=== PATIENT | male | born 1930 | race Caucasian/White ===

== ENCOUNTER 2016-08-04 04:45 | Emergency (ER) | payer MEDICARE, BC ==
[~2016-08-04] VITALS: Ht 170.2 cm; Wt 57.2 kg
[2016-08-04 05:09] VITALS: BP 163/85
[2016-08-04] MEDS ORDERED: KETOROLAC TROMETHAMINE 30 MG/ML SYRINGE. IV ONE (05:15)
[2016-08-04 05:23] LABS: CALCIUM 9.5 mg/dL (8.5-10.1); CREATININE 0.9 mg/dL (0.7-1.3); GFR 80.4
--- NOTE | 2016-08-04 05:25 | PHYS DOC ---
Past Medical History Past Medical History: High Cholesterol, Hypertension Past Surgical History: No Surgical History Alcohol Use: None Drug Use: None Adult General Chief Complaint Chief Complaint: UPPER EXTREMITY PAIN HPI HPI Patient is a 86 year old male who presents by EMS for right elbow pain. Pain is intermittent, achy and spasmodic, worse with ROM at elbow and wrist. Pain is located to medial elbow. Denies trauma, numbness, tingling, weakness, swelling, discoloration, chest pain, dyspnea, shoulder pain, wrist or hand pain. Review of Systems Review of Systems Constitutional: Denies fever or chills [] Eyes: Denies change in visual acuity, redness, or eye pain [] HENT: Denies nasal congestion or sore throat [] Respiratory: Denies cough or shortness of breath [] Cardiovascular: No additional information not addressed in HPI [] GI: Denies abdominal pain, nausea, vomiting, bloody stools or diarrhea [] : Denies dysuria or hematuria [] Musculoskeletal: Denies back pain [] Integument: Denies rash or skin lesions [] Neurologic: Denies headache, focal weakness or sensory changes [] Endocrine: Denies polyuria or polydipsia [] Current Medications Current Medications Current Medications Medications (Trade) Dose Ordered Sig/Mingo Start Time Stop Time Status Last Admin Dose Admin Ketorolac Tromethamine (Toradol) 10 mg 1X ONCE 08/04/16 05:15 08/04/16 05:16 DC 08/04/16 05:17 10 MG Allergies Allergies Allergies Coded Allergies Type Severity Reaction Last Updated Verified No Known Drug Allergies 08/04/16 No Physical Exam Physical Exam Constitutional: Well developed, well nourished, no acute distress, non-toxic appearance. [] HENT: Normocephalic, atraumatic, bilateral external ears normal, oropharynx moist, nose normal. [] Eyes: PERRLA, EOMI. [] Neck: Normal range of motion, supple. [] Cardiovascular:Heart rate regular rhythm [] Lungs & Thorax: Bilateral breath sounds clear to auscultation [] Abdomen: Bowel sounds normal, soft, no tenderness. [] Skin: Warm, dry, no erythema, no rash. [] Back: Normal ROM. [] Extremities: RUE with no obvious deformity or discoloration; Has mild tenderness to medial elbow flexor muscles of forearm without specific bony tenderness; Full ROM with shoulder/elbow/wrist/hand; Can pronate/supinate; Can make fist/ok sign/thumb up/finger cross and spread; Can flex/ex wrist; Good radial pulse and brisk cap refill equal bilaterally; sensation intact to light touch m/u/r/ax nerves Neurologic: Alert and oriented X 3, normal motor function, normal sensory function, no focal deficits noted. [] Psychologic: Affect normal, judgement normal, mood normal. [] Current Patient Data Vital Signs Vital Signs Date Time Temp Pulse Resp B/P Pulse Ox O2 Delivery O2 Flow Rate FiO2 08/04/16 05:09 97.7 73 16 163/85 95 Room Air 97.7 Lab Values Laboratory Tests Test 08/04/16 04:52 Sodium Level 139mmol/L (136-145) Potassium Level 4.0mmol/L (3.5-5.1) Chloride Level 102mmol/L (98-107) Carbon Dioxide Level 29mmol/L (21-32) Anion Gap 8 (6-14) Blood Urea Nitrogen 14mg/dL (8-26) Creatinine 0.9mg/dL (0.7-1.3) Estimated GFR (Cockcroft-Gault) 80.4 Glucose Level 100mg/dL (70-99) H Calcium Level 9.5mg/dL (8.5-10.1) Creatine Kinase 132U/L (39-308) Laboratory Tests 08/04/16 04:52 Radiology/Procedures Radiology/Procedures Right elbow xray as interpreted by me with no acute fracture or dislocation Course & Med Decision Making Course & Med Decision Making Pertinent Labs and Imaging studies reviewed. (See chart for details) Workup is unremarkable. Discussed symptomatic care and encouraged close PCP follow up. Return precautions given. He understands and agrees with plan. Dragon Disclaimer Dragon Disclaimer This electronic medical record was generated, in whole or in part, using a voice recognition dictation system. Departure Departure Impression: Primary Impression: Right elbow pain Disposition: HOME, SELF-CARE Condition: STABLE Referrals: DENNYS MURRAY MD (PCP) Patient Instructions: Musculoskeletal Pain Additional Instructions: Take ibuprofen 200mg every 8 hours as needed for pain. Follow up with your primary care doctor within 1 week. Return for any concerns. Jennie ESCUDERO MD Aug 04, 2016 05:24
--- NOTE | 2016-08-04 07:34 | RAD ---
Right elbow, 3 views, 08/04/2016: History: Pain No acute fracture or dislocation is identified. There is mild spurring at the elbow joint. A small calcification along the lateral aspect of the joint is well marginated and appears old. This probably represents a tendinous calcification or old avulsion fracture fragment arising from the lateral epicondyle of the distal humerus. There is a moderate-sized elbow joint effusion. IMPRESSION: 1. 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 2. Large joint effusion.
== END 2016-08-04 05:50 | disposition home or self-care (01) ==
LOC: ER 04:45
DX: M25.521 Pain in right elbow (principal); I10 Essential (primary) hypertension; E78.00 Pure hypercholesterolemia, unspecified
CPT/HCPCS: 36415; 73080; 80048; 82550; 96374; 99285; J1885

== ENCOUNTER 2017-07-06 07:55 | Emergency (ER) | payer MEDICARE ==
[2017-07-06] MEDS: IPRATRPIUM/ALBUTEROL 0.5/2.5MG 3 ML NEBU. NEB ×2 (08:39)
== END 2017-07-06 09:18 | disposition short-term general hospital (02) ==
LOC: ER 07:55
DX: J44.1 Chronic obstructive pulmonary disease with (acute) exacerbation (principal); R09.02 Hypoxemia; J18.9 Pneumonia, unspecified organism; I10 Essential (primary) hypertension; E78.00 Pure hypercholesterolemia, unspecified
CPT/HCPCS: 71045; 94640; 94760; 99284-25; 99285-25; J7620

== ENCOUNTER 2017-07-15 09:49 | Inpatient (IN) | payer MEDICARE ==
[2017-07-15] MEDS ORDERED: IPRATRPIUM/ALBUTEROL 0.5/2.5MG 3 ML NEBU. (09:56)
[2017-07-15] MEDS: IPRATRPIUM/ALBUTEROL 0.5/2.5MG 3 ML NEBU. NEB ×3 (10:00→20:39)
[2017-07-15] MEDS: ALBUTEROL SULFATE 2.5 MG/3 ML NEBU. NEB (10:00)
[2017-07-15 10:12] LABS: BASE EXCESS ABG 0 mmol/L (-3-3); HCO3 ABG 26 mmol/L (21-28); PCO2 ABG 43 mmHg (35-46); PH ABG 7.39 (7.35-7.45); PO2 ABG 51 mmHg (65-108); SAT O2 ABG 82 % (92-99)
[2017-07-15 10:14] LABS: BASO % 0 % (0-3); EOS % 0 % (0-3); HEMATOCRIT 32.1 % (39.0-53.0); HEMOGLOBIN 10.7 g/dL (13.0-17.5); LYMPH # 0.4 x10^3/uL (1.0-4.8); LYMPH % 4 % (24-48); MEAN CORPUSCULAR HEMOGLOBIN 29 pg (25-35); MEAN CORPUSCULAR HGB CONC 33 g/dL (31-37); MEAN CORPUSCULAR VOLUME 86 fL (79-100); MONO # 1.6 x10^3/uL (0.0-1.1); MONO % 14 % (0-9); NEUT # 9.1 x10^3uL (1.8-7.7); NEUT % 82 % (31-73); PLATELET COUNT 161 x10^3/uL (140-400); RED BLOOD COUNT 3.72 x10^6/uL (4.30-5.70); RED CELL DISTRIBUTION WIDTH 15.6 % (11.5-14.5); WHITE BLOOD COUNT 11.2 x10^3/uL (4.0-11.0)
[2017-07-15] MEDS ORDERED: levOFLOXacin PER PHARMACY. MC (10:15)
[2017-07-15] MEDS ORDERED: PIP/TAZO PER PHARMACY MC (10:15)
[2017-07-15] MEDS ORDERED: VANCOMYCIN PER PHARMACY MC (10:15)
[2017-07-15] MEDS: methylPREDNISolone SOD SUCC PF 125 MG/2 ML VIAL. IV (10:19)
[2017-07-15 10:21] LABS: ADD MAN DIFF? YES
[2017-07-15] MEDS: IV NORMAL SALINE 1000ML BAG 1,000 ML IV ×2 (10:23→11:18)
[2017-07-15 10:27] LABS: ANION GAP 10 (6-14); BLOOD UREA NITROGEN 19 mg/dL (8-26); BUN/CREATININE RATIO 19 (6-20); CALCIUM 8.6 mg/dL (8.5-10.1); CARBON DIOXIDE 27 mmol/L (21-32); CHLORIDE 95 mmol/L (98-107); GLUCOSE 200 mg/dL (70-99); POTASSIUM 4.3 mmol/L (3.5-5.1); SODIUM 132 mmol/L (136-145)
[2017-07-15 10:29] LABS: PROTHROMBIN TIME PATIENT 12.8 SEC (11.7-14.0)
[2017-07-15 10:33] LABS: ALBUMIN 2.9 g/dL (3.4-5.0); ALBUMIN/GLOBULIN RATIO 0.8 (1.0-1.7); ALK PHOS 93 U/L (46-116); ALT (SGPT) 67 U/L (16-63); AST (SGOT) 61 U/L (15-37); MAGNESIUM 2.5 mg/dL (1.8-2.4); TOTAL BILIRUBIN 0.7 mg/dL (0.2-1.0); TOTAL PROTEIN 6.5 g/dL (6.4-8.2)
[2017-07-15 10:36] LABS: TROPONINI 0.059 ng/mL (0.000-0.055)
[2017-07-15 10:39] LABS: INFLUENZA A PATIENT NEGATIVE (NEGATIVE); INFLUENZA B PATIENT NEGATIVE (NEGATIVE); OBC FLU VALID
[2017-07-15 10:39] LABS: NT-PRO BNP 9452 pg/mL (0-449)
[2017-07-15] MEDS: PIPERACILLIN/TAZOBACTAM 3.375 GM in IV NORMAL SALINE 50ML 50 ML IV (10:43)
[2017-07-15] MEDS ORDERED: ONDANSETRON PF 4 MG/2 ML VIAL. IV ×2 (10:45→12:15)
[2017-07-15 10:49] LABS: LACTIC ACID 2.9 mmol/L (0.4-2.0)
[2017-07-15 11:49] LABS: % BANDS 6 % (0-9); % LYMPHS 6 % (24-48); % MONOS 5 % (0-10); % SEGS 83 % (35-66); PLT ESTIMATE ADEQUATE (ADEQUATE)
[2017-07-15] MEDS ORDERED: NICOTINE 21MG PATCH. TD (12:15)
[2017-07-15] MEDS ORDERED: guaiFENesin DM 200MG/20MG 10 ML SYRUP PO (12:15)
[2017-07-15] MEDS ORDERED: MAGNESIUM HYDROXIDE 2,400 MG/30 ML ORAL.SUSP. PO (12:15)
[2017-07-15] MEDS ORDERED: cloNIDine HCL 0.1 MG TABLET PO (12:15)
[2017-07-15] MEDS: VANCOMYCIN IV (12:34)
[2017-07-15] MEDS: DEXTROSE 5% IV (12:34)
[2017-07-15 13:00] LABS: LACTIC ACID 1.5 mmol/L (0.4-2.0)
[2017-07-15] MEDS: CARVEDILOL 6.25 MG TABLET. PO (17:49)
[2017-07-15] MEDS: PIPERACILLIN/TAZOBACTAM 4.5 GM in IV NORMAL SALINE 100ML 100 ML IV ×2 (17:49→23:34)
[2017-07-15] MEDS: SIMVASTATIN 10 MG TABLET PO (21:00)
[2017-07-15] MEDS: LACTOBACILLUS RHAMNOSUS GG 1 CAPSULE. PO (21:00)
[2017-07-15] MEDS: MONTELUKAST SODIUM 10 MG TABLET. PO (21:00)
[2017-07-15 22:13] LABS: MRSA BY PCR Negative (Negative)
[2017-07-16 05:08] LABS: ADD MAN DIFF? NO
[2017-07-16 05:10] LABS: BASO % 0 % (0-3); EOS % 0 % (0-3); HEMOGLOBIN 11.5 g/dL (13.0-17.5); LYMPH # 0.3 x10^3/uL (1.0-4.8); LYMPH % 3 % (24-48); MEAN CORPUSCULAR HEMOGLOBIN 29 pg (25-35); MEAN CORPUSCULAR HGB CONC 34 g/dL (31-37); MEAN CORPUSCULAR VOLUME 85 fL (79-100); MONO # 1.1 x10^3/uL (0.0-1.1); MONO % 13 % (0-9); NEUT # 6.9 x10^3uL (1.8-7.7); NEUT % 84 % (31-73); PLATELET COUNT 145 x10^3/uL (140-400); RED BLOOD COUNT 3.99 x10^6/uL (4.30-5.70); RED CELL DISTRIBUTION WIDTH 15.6 % (11.5-14.5); WHITE BLOOD COUNT 8.2 x10^3/uL (4.0-11.0)
[2017-07-16] MEDS: PIPERACILLIN/TAZOBACTAM 4.5 GM in IV NORMAL SALINE 100ML 100 ML IV ×3 (05:39→17:11)
[2017-07-16] MEDS: BUDESONIDE 0.5 MG/2 ML NEBU. NEB (07:28)
[2017-07-16] MEDS: IPRATRPIUM/ALBUTEROL 0.5/2.5MG 3 ML NEBU. NEB ×4 (07:28→20:10)
[2017-07-16 07:37] LABS: BASE EXCESS ABG 1 mmol/L (-3-3); HCO3 ABG 24 mmol/L (21-28); PCO2 ABG 31 mmHg (35-46); PO2 ABG 56 mmHg (65-108); SAT O2 ABG 88 % (92-99)
[2017-07-16] MEDS: LACTOBACILLUS RHAMNOSUS GG 1 CAPSULE. PO ×2 (08:54→20:24)
[2017-07-16] MEDS: POLYETHYLENE GLYCOL 3350 17 GM PACKET. PO (08:54)
[2017-07-16] MEDS: ASPIRIN ENTERIC COATED 81 MG TABLET.DR. PO (08:54)
[2017-07-16] MEDS: amLODIPine BESYLATE 10 MG TABLET PO (08:55)
[2017-07-16] MEDS: LOSARTAN POTASSIUM 50 MG TABLET. PO (08:55)
[2017-07-16] MEDS: CARVEDILOL 6.25 MG TABLET. PO ×2 (08:55→17:11)
[2017-07-16 08:56] LABS: FIO2 ABG 50
[2017-07-16] MEDS: MONTELUKAST SODIUM 10 MG TABLET. PO (20:24)
[2017-07-16] MEDS: SIMVASTATIN 10 MG TABLET PO (20:24)
[2017-07-17 05:13] LABS: ADD MAN DIFF? NO
[2017-07-17 05:22] LABS: BASO % 0 % (0-3); EOS % 0 % (0-3); HEMATOCRIT 31.2 % (39.0-53.0); HEMOGLOBIN 10.3 g/dL (13.0-17.5); LYMPH # 0.3 x10^3/uL (1.0-4.8); LYMPH % 2 % (24-48); MEAN CORPUSCULAR HEMOGLOBIN 28 pg (25-35); MEAN CORPUSCULAR HGB CONC 33 g/dL (31-37); MEAN CORPUSCULAR VOLUME 85 fL (79-100); MONO # 1.9 x10^3/uL (0.0-1.1); MONO % 13 % (0-9); NEUT # 12.3 x10^3uL (1.8-7.7); NEUT % 85 % (31-73); PLATELET COUNT 127 x10^3/uL (140-400); RED BLOOD COUNT 3.67 x10^6/uL (4.30-5.70); RED CELL DISTRIBUTION WIDTH 15.5 % (11.5-14.5); WHITE BLOOD COUNT 14.6 x10^3/uL (4.0-11.0)
[2017-07-17] MEDS: PIPERACILLIN/TAZOBACTAM 4.5 GM in IV NORMAL SALINE 100ML 100 ML IV ×4 (05:55→20:12)
[2017-07-17 06:01] LABS: ANION GAP 7 (6-14); BLOOD UREA NITROGEN 20 mg/dL (8-26); CALCIUM 8.5 mg/dL (8.5-10.1); CARBON DIOXIDE 29 mmol/L (21-32); CHLORIDE 98 mmol/L (98-107); CREATININE 1.1 mg/dL (0.7-1.3); GFR 63.6; GLUCOSE 93 mg/dL (70-99); SODIUM 134 mmol/L (136-145)
[2017-07-17] MEDS: ASPIRIN ENTERIC COATED 81 MG TABLET.DR. PO (08:53)
[2017-07-17] MEDS: LACTOBACILLUS RHAMNOSUS GG 1 CAPSULE. PO ×2 (08:53→20:12)
[2017-07-17] MEDS: LOSARTAN POTASSIUM 50 MG TABLET. PO (08:54)
[2017-07-17] MEDS: CARVEDILOL 6.25 MG TABLET. PO ×2 (08:54→20:12)
[2017-07-17] MEDS: amLODIPine BESYLATE 10 MG TABLET PO (08:54)
[2017-07-17] MEDS: IPRATRPIUM/ALBUTEROL 0.5/2.5MG 3 ML NEBU. NEB ×4 (08:55→20:12)
[2017-07-17] MEDS: BUDESONIDE 0.5 MG/2 ML NEBU. NEB (08:55)
[2017-07-17] MEDS: POLYETHYLENE GLYCOL 3350 17 GM PACKET. PO ×2 (09:02→20:13)
[2017-07-17 10:28] LABS: MAGNESIUM 2.2 mg/dL (1.8-2.4)
[2017-07-17 10:31] LABS: TROPONINI 0.055 ng/mL (0.000-0.055)
[2017-07-17] MEDS: FUROSEMIDE 40 MG/4 ML VIAL. IVP (12:46)
[2017-07-17] MEDS ORDERED: BISACODYL 5 MG TABLET.DR. PO (13:15)
[2017-07-17] MEDS: MONTELUKAST SODIUM 10 MG TABLET. PO (20:12)
[2017-07-17] MEDS: SIMVASTATIN 10 MG TABLET PO (20:12)
[2017-07-17] MEDS: hydrOXYzine 10 MG TABLET PO (22:13)
[2017-07-18] MEDS: PIPERACILLIN/TAZOBACTAM 4.5 GM in IV NORMAL SALINE 100ML 100 ML IV ×4 (05:47→18:39)
[2017-07-18 05:48] LABS: ADD MAN DIFF? NO
[2017-07-18 05:56] LABS: BASO % 0 % (0-3); EOS % 0 % (0-3); HEMATOCRIT 34.5 % (39.0-53.0); HEMOGLOBIN 11.4 g/dL (13.0-17.5); LYMPH # 0.3 x10^3/uL (1.0-4.8); LYMPH % 2 % (24-48); MEAN CORPUSCULAR HEMOGLOBIN 28 pg (25-35); MEAN CORPUSCULAR HGB CONC 33 g/dL (31-37); MEAN CORPUSCULAR VOLUME 85 fL (79-100); MONO # 1.5 x10^3/uL (0.0-1.1); MONO % 12 % (0-9); NEUT # 10.7 x10^3uL (1.8-7.7); NEUT % 86 % (31-73); PLATELET COUNT 124 x10^3/uL (140-400); RED BLOOD COUNT 4.05 x10^6/uL (4.30-5.70); RED CELL DISTRIBUTION WIDTH 15.4 % (11.5-14.5); WHITE BLOOD COUNT 12.6 x10^3/uL (4.0-11.0)
[2017-07-18 06:14] LABS: ALBUMIN 2.3 g/dL (3.4-5.0); ALBUMIN/GLOBULIN RATIO 0.7 (1.0-1.7); ALK PHOS 65 U/L (46-116); ALT (SGPT) 43 U/L (16-63); ANION GAP 6 (6-14); AST (SGOT) 44 U/L (15-37); BLOOD UREA NITROGEN 16 mg/dL (8-26); BUN/CREATININE RATIO 16 (6-20); CALCIUM 7.9 mg/dL (8.5-10.1); CARBON DIOXIDE 32 mmol/L (21-32); CHLORIDE 95 mmol/L (98-107); GLUCOSE 96 mg/dL (70-99); SODIUM 133 mmol/L (136-145); TOTAL BILIRUBIN 0.7 mg/dL (0.2-1.0); TOTAL PROTEIN 5.5 g/dL (6.4-8.2)
[2017-07-18 06:16] LABS: POTASSIUM 2.6 mmol/L (3.5-5.1)
[2017-07-18] MEDS: POTASSIUM CL 40MEQ IN 0.9%NACL 500 ML IV (07:42)
[2017-07-18] MEDS: CARVEDILOL 6.25 MG TABLET. PO ×2 (08:42→18:38)
[2017-07-18] MEDS: ASPIRIN ENTERIC COATED 81 MG TABLET.DR. PO (08:42)
[2017-07-18] MEDS: amLODIPine BESYLATE 10 MG TABLET PO (08:42)
[2017-07-18] MEDS: LACTOBACILLUS RHAMNOSUS GG 1 CAPSULE. PO ×2 (08:43→20:16)
[2017-07-18] MEDS: FLUCONAZOLE 100MG/50ML PREMIX 50 ML IV (08:43)
[2017-07-18] MEDS: LOSARTAN POTASSIUM 50 MG TABLET. PO (08:43)
[2017-07-18] MEDS: POLYETHYLENE GLYCOL 3350 17 GM PACKET. PO ×2 (08:43→20:17)
[2017-07-18] MEDS: IPRATRPIUM/ALBUTEROL 0.5/2.5MG 3 ML NEBU. NEB ×5 (09:48→19:53)
[2017-07-18] MEDS: BUDESONIDE 0.5 MG/2 ML NEBU. NEB (09:48)
[2017-07-18 18:12] LABS: POTASSIUM 3.2 mmol/L (3.5-5.1)
[2017-07-18] MEDS: POTASSIUM CHLORIDE 20 MEQ TABLET.ER. PO (20:16)
[2017-07-18] MEDS: SIMVASTATIN 10 MG TABLET PO (20:16)
[2017-07-18] MEDS: MONTELUKAST SODIUM 10 MG TABLET. PO (20:16)
[2017-07-18] MEDS: hydrOXYzine 10 MG TABLET PO (20:29)
[2017-07-18] MEDS: MAGNESIUM HYDROXIDE 2,400 MG/30 ML ORAL.SUSP. PO (20:29)
[2017-07-19] MEDS: PIPERACILLIN/TAZOBACTAM 4.5 GM in IV NORMAL SALINE 100ML 100 ML IV ×4 (00:25→18:22)
[2017-07-19 06:44] LABS: ADD MAN DIFF? NO
[2017-07-19 06:47] LABS: BASO # 0.1 x10^3/uL (0.0-0.2); BASO % 1 % (0-3); EOS % 0 % (0-3); HEMATOCRIT 33.6 % (39.0-53.0); HEMOGLOBIN 11.1 g/dL (13.0-17.5); LYMPH # 0.3 x10^3/uL (1.0-4.8); LYMPH % 3 % (24-48); MEAN CORPUSCULAR HEMOGLOBIN 28 pg (25-35); MEAN CORPUSCULAR HGB CONC 33 g/dL (31-37); MEAN CORPUSCULAR VOLUME 85 fL (79-100); MONO # 1.4 x10^3/uL (0.0-1.1); MONO % 12 % (0-9); NEUT # 9.5 x10^3uL (1.8-7.7); NEUT % 84 % (31-73); PLATELET COUNT 126 x10^3/uL (140-400); RED BLOOD COUNT 3.96 x10^6/uL (4.30-5.70); RED CELL DISTRIBUTION WIDTH 15.6 % (11.5-14.5); WHITE BLOOD COUNT 11.3 x10^3/uL (4.0-11.0)
[2017-07-19 07:12] LABS: ALBUMIN 2.3 g/dL (3.4-5.0); ALBUMIN/GLOBULIN RATIO 0.7 (1.0-1.7); ALK PHOS 63 U/L (46-116); ALT (SGPT) 40 U/L (16-63); ANION GAP 6 (6-14); AST (SGOT) 48 U/L (15-37); BLOOD UREA NITROGEN 15 mg/dL (8-26); BUN/CREATININE RATIO 15 (6-20); CALCIUM 8.2 mg/dL (8.5-10.1); CARBON DIOXIDE 30 mmol/L (21-32); CHLORIDE 98 mmol/L (98-107); GLUCOSE 92 mg/dL (70-99); POTASSIUM 3.5 mmol/L (3.5-5.1); SODIUM 134 mmol/L (136-145); TOTAL BILIRUBIN 0.9 mg/dL (0.2-1.0); TOTAL PROTEIN 5.7 g/dL (6.4-8.2)
[2017-07-19] MEDS: BUDESONIDE 0.5 MG/2 ML NEBU. NEB ×2 (08:36→20:48)
[2017-07-19] MEDS: IPRATRPIUM/ALBUTEROL 0.5/2.5MG 3 ML NEBU. NEB ×4 (08:37→20:48)
[2017-07-19] MEDS: POLYETHYLENE GLYCOL 3350 17 GM PACKET. PO ×2 (09:00→21:00)
[2017-07-19] MEDS: LACTOBACILLUS RHAMNOSUS GG 1 CAPSULE. PO ×2 (10:16→21:14)
[2017-07-19] MEDS: amLODIPine BESYLATE 10 MG TABLET PO (10:17)
[2017-07-19] MEDS: CARVEDILOL 6.25 MG TABLET. PO ×2 (10:17→18:22)
[2017-07-19] MEDS: ASPIRIN ENTERIC COATED 81 MG TABLET.DR. PO (10:17)
[2017-07-19] MEDS: LOSARTAN POTASSIUM 50 MG TABLET. PO (10:18)
[2017-07-19] MEDS: MAGNESIUM HYDROXIDE 2,400 MG/30 ML ORAL.SUSP. PO (10:18)
[2017-07-19] MEDS: FLUCONAZOLE 100MG/50ML PREMIX 50 ML IV (13:47)
[2017-07-19] MEDS: SIMVASTATIN 10 MG TABLET PO (21:14)
[2017-07-19] MEDS: MONTELUKAST SODIUM 10 MG TABLET. PO (21:14)
[2017-07-20] MEDS: PIPERACILLIN/TAZOBACTAM 4.5 GM in IV NORMAL SALINE 100ML 100 ML IV ×4 (01:13→17:25)
[2017-07-20] MEDS: IPRATRPIUM/ALBUTEROL 0.5/2.5MG 3 ML NEBU. NEB ×4 (07:13→20:35)
[2017-07-20] MEDS: BUDESONIDE 0.5 MG/2 ML NEBU. NEB (07:14)
[2017-07-20] MEDS: POLYETHYLENE GLYCOL 3350 17 GM PACKET. PO ×2 (09:00→21:00)
[2017-07-20] MEDS: LACTOBACILLUS RHAMNOSUS GG 1 CAPSULE. PO ×2 (10:35→21:50)
[2017-07-20] MEDS: CARVEDILOL 6.25 MG TABLET. PO ×2 (10:35→17:24)
[2017-07-20] MEDS: ASPIRIN ENTERIC COATED 81 MG TABLET.DR. PO (10:36)
[2017-07-20] MEDS: amLODIPine BESYLATE 10 MG TABLET PO (10:36)
[2017-07-20] MEDS: LOSARTAN POTASSIUM 50 MG TABLET. PO (10:36)
[2017-07-20] MEDS: FLUCONAZOLE 100MG/50ML PREMIX 50 ML IV (10:37)
[2017-07-20] MEDS: SIMVASTATIN 10 MG TABLET PO (21:50)
[2017-07-20] MEDS: MONTELUKAST SODIUM 10 MG TABLET. PO (21:50)
[2017-07-21] MEDS: PIPERACILLIN/TAZOBACTAM 4.5 GM in IV NORMAL SALINE 100ML 100 ML IV ×5 (00:09→23:47)
[2017-07-21] MEDS: IPRATRPIUM/ALBUTEROL 0.5/2.5MG 3 ML NEBU. NEB ×4 (07:40→19:48)
[2017-07-21] MEDS: BUDESONIDE 0.5 MG/2 ML NEBU. NEB (07:50)
[2017-07-21] MEDS: ASPIRIN ENTERIC COATED 81 MG TABLET.DR. PO (08:50)
[2017-07-21] MEDS: LOSARTAN POTASSIUM 50 MG TABLET. PO (08:51)
[2017-07-21] MEDS: CARVEDILOL 6.25 MG TABLET. PO ×2 (08:51→17:48)
[2017-07-21] MEDS: POLYETHYLENE GLYCOL 3350 17 GM PACKET. PO ×2 (08:51→21:00)
[2017-07-21] MEDS: amLODIPine BESYLATE 10 MG TABLET PO (08:51)
[2017-07-21] MEDS: LACTOBACILLUS RHAMNOSUS GG 1 CAPSULE. PO ×2 (08:52→21:01)
[2017-07-21] MEDS: FLUCONAZOLE 100MG/50ML PREMIX 50 ML IV (10:06)
[2017-07-21] MEDS: FUROSEMIDE 40 MG/4 ML VIAL. IVP (11:30)
[2017-07-21] MEDS: POTASSIUM CHLORIDE 20 MEQ TABLET.ER. PO (11:31)
[2017-07-21] MEDS: MONTELUKAST SODIUM 10 MG TABLET. PO (21:01)
[2017-07-21] MEDS: SIMVASTATIN 10 MG TABLET PO (21:01)
[2017-07-22 03:51] LABS: ADD MAN DIFF? NO
[2017-07-22 03:57] LABS: BASO % 0 % (0-3); EOS % 0 % (0-3); HEMATOCRIT 31.6 % (39.0-53.0); HEMOGLOBIN 10.6 g/dL (13.0-17.5); LYMPH # 0.3 x10^3/uL (1.0-4.8); LYMPH % 3 % (24-48); MEAN CORPUSCULAR HEMOGLOBIN 29 pg (25-35); MEAN CORPUSCULAR HGB CONC 33 g/dL (31-37); MEAN CORPUSCULAR VOLUME 86 fL (79-100); MONO # 1.6 x10^3/uL (0.0-1.1); MONO % 14 % (0-9); NEUT # 9.4 x10^3uL (1.8-7.7); NEUT % 83 % (31-73); PLATELET COUNT 107 x10^3/uL (140-400); WHITE BLOOD COUNT 11.4 x10^3/uL (4.0-11.0)
[2017-07-22 04:16] LABS: ALBUMIN 2.3 g/dL (3.4-5.0); ALBUMIN/GLOBULIN RATIO 0.6 (1.0-1.7); ALK PHOS 72 U/L (46-116); ALT (SGPT) 32 U/L (16-63); ANION GAP 6 (6-14); AST (SGOT) 36 U/L (15-37); BLOOD UREA NITROGEN 16 mg/dL (8-26); BUN/CREATININE RATIO 18 (6-20); CALCIUM 8.4 mg/dL (8.5-10.1); CARBON DIOXIDE 35 mmol/L (21-32); CHLORIDE 104 mmol/L (98-107); CREATININE 0.9 mg/dL (0.7-1.3); GFR 80.2; GLUCOSE 108 mg/dL (70-99); MAGNESIUM 1.9 mg/dL (1.8-2.4); SODIUM 145 mmol/L (136-145); TOTAL BILIRUBIN 0.7 mg/dL (0.2-1.0); TOTAL PROTEIN 5.9 g/dL (6.4-8.2)
[2017-07-22 04:33] LABS: POTASSIUM 2.5 mmol/L (3.5-5.1)
[2017-07-22] MEDS: PIPERACILLIN/TAZOBACTAM 4.5 GM in IV NORMAL SALINE 100ML 100 ML IV ×3 (05:27→17:16)
[2017-07-22] MEDS: POTASSIUM CHLORIDE 20 MEQ/15 ML ORAL LIQUID. PEG ×2 (05:27→08:39)
[2017-07-22] MEDS: BUDESONIDE 0.5 MG/2 ML NEBU. NEB (07:27)
[2017-07-22] MEDS: IPRATRPIUM/ALBUTEROL 0.5/2.5MG 3 ML NEBU. NEB ×4 (07:27→19:33)
[2017-07-22] MEDS: CARVEDILOL 6.25 MG TABLET. PO ×2 (08:00→17:00)
[2017-07-22] MEDS: ASPIRIN ENTERIC COATED 81 MG TABLET.DR. PO (08:38)
[2017-07-22] MEDS: LACTOBACILLUS RHAMNOSUS GG 1 CAPSULE. PO ×2 (08:38→19:12)
[2017-07-22] MEDS: LOSARTAN POTASSIUM 50 MG TABLET. PO (08:39)
[2017-07-22] MEDS: POLYETHYLENE GLYCOL 3350 17 GM PACKET. PO ×2 (08:41→19:12)
[2017-07-22] MEDS: amLODIPine BESYLATE 10 MG TABLET PO (09:00)
[2017-07-22] MEDS: FLUCONAZOLE 100MG/50ML PREMIX 50 ML IV (09:11)
[2017-07-22] MEDS: MONTELUKAST SODIUM 10 MG TABLET. PO (19:13)
[2017-07-22] MEDS: SIMVASTATIN 10 MG TABLET PO (19:13)
[2017-07-23] MEDS: PIPERACILLIN/TAZOBACTAM 4.5 GM in IV NORMAL SALINE 100ML 100 ML IV ×4 (00:41→18:00)
[2017-07-23] MEDS: CARVEDILOL 6.25 MG TABLET. PO ×2 (08:00→16:20)
[2017-07-23] MEDS: IPRATRPIUM/ALBUTEROL 0.5/2.5MG 3 ML NEBU. NEB ×4 (08:10→20:14)
[2017-07-23] MEDS: BUDESONIDE 0.5 MG/2 ML NEBU. NEB (08:10)
[2017-07-23] MEDS: amLODIPine BESYLATE 10 MG TABLET PO (09:00)
[2017-07-23] MEDS: POLYETHYLENE GLYCOL 3350 17 GM PACKET. PO ×3 (09:00→20:59)
[2017-07-23] MEDS: FLUCONAZOLE 100MG/50ML PREMIX 50 ML IV (16:01)
[2017-07-23] MEDS: ASPIRIN ENTERIC COATED 81 MG TABLET.DR. PO (16:19)
[2017-07-23] MEDS: LOSARTAN POTASSIUM 50 MG TABLET. PO (16:19)
[2017-07-23] MEDS: LACTOBACILLUS RHAMNOSUS GG 1 CAPSULE. PO ×3 (16:19→20:59)
[2017-07-23] MEDS: SIMVASTATIN 10 MG TABLET PO ×2 (20:56→20:59)
[2017-07-23] MEDS: MONTELUKAST SODIUM 10 MG TABLET. PO ×2 (20:56→20:59)
[2017-07-24] MEDS: PIPERACILLIN/TAZOBACTAM 4.5 GM in IV NORMAL SALINE 100ML 100 ML IV ×5 (00:49→23:45)
[2017-07-24 01:37] LABS: ANION GAP 8 (6-14); BLOOD UREA NITROGEN 22 mg/dL (8-26); CALCIUM 8.5 mg/dL (8.5-10.1); CARBON DIOXIDE 34 mmol/L (21-32); CHLORIDE 111 mmol/L (98-107); GLUCOSE 130 mg/dL (70-99); SODIUM 153 mmol/L (136-145)
[2017-07-24 01:39] LABS: POTASSIUM 2.6 mmol/L (3.5-5.1)
[2017-07-24 02:05] LABS: MAGNESIUM 1.9 mg/dL (1.8-2.4)
[2017-07-24] MEDS: dilTIAZem VIAL 125 MG in IV DEXTROSE 5% 100 ML IV (02:30)
[2017-07-24] MEDS: POTASSIUM CHLORIDE 20 MEQ/15 ML ORAL LIQUID. PEG ×3 (02:34→10:19)
[2017-07-24] MEDS: dilTIAZem IV PUSH 25 MG/5 ML VIAL IVP (02:34)
[2017-07-24] MEDS: FUROSEMIDE 40 MG/4 ML VIAL. IVP (06:50)
[2017-07-24] MEDS: IPRATRPIUM/ALBUTEROL 0.5/2.5MG 3 ML NEBU. NEB ×4 (07:26→18:09)
[2017-07-24] MEDS: BUDESONIDE 0.5 MG/2 ML NEBU. NEB ×2 (07:26→18:10)
[2017-07-24 08:43] LABS: ANION GAP 10 (6-14); BLOOD UREA NITROGEN 26 mg/dL (8-26); CALCIUM 9.2 mg/dL (8.5-10.1); CARBON DIOXIDE 32 mmol/L (21-32); CHLORIDE 112 mmol/L (98-107); CREATININE 1.2 mg/dL (0.7-1.3); GFR 57.5; GLUCOSE 159 mg/dL (70-99); POTASSIUM 3.4 mmol/L (3.5-5.1); SODIUM 154 mmol/L (136-145)
[2017-07-24] MEDS: POLYETHYLENE GLYCOL 3350 17 GM PACKET. PO ×2 (09:00→20:48)
[2017-07-24] MEDS: LACTOBACILLUS RHAMNOSUS GG 1 CAPSULE. PO ×2 (10:20→20:48)
[2017-07-24] MEDS: VITS A & D/LANOLIN TOPICAL OINTMENT 56GM TUBE. TP (10:20)
[2017-07-24] MEDS: FLUCONAZOLE 100MG/50ML PREMIX 50 ML IV (10:20)
[2017-07-24] MEDS: ASPIRIN ENTERIC COATED 81 MG TABLET.DR. PO (10:20)
[2017-07-24] MEDS: CARVEDILOL 6.25 MG TABLET. PO (10:21)
[2017-07-24] MEDS: LOSARTAN POTASSIUM 50 MG TABLET. PO (10:21)
[2017-07-24] MEDS: amLODIPine BESYLATE 10 MG TABLET PO (10:22)
[2017-07-24 10:47] LABS: MAGNESIUM 2.1 mg/dL (1.8-2.4)
[2017-07-24] MEDS ORDERED: hydrALAZINE 20 MG/ML VIAL. IVP (13:15)
[2017-07-24] MEDS: dilTIAZem HCL 30 MG TABLET PO ×3 (13:45→23:21)
[2017-07-24] MEDS: METOPROLOL TART IMMED RELEASE 25 MG TABLET. PO (20:48)
[2017-07-24] MEDS: SIMVASTATIN 10 MG TABLET PO (20:48)
[2017-07-24] MEDS: MONTELUKAST SODIUM 10 MG TABLET. PO (20:48)
[2017-07-25 00:05] LABS: ANION GAP 7 (6-14); BLOOD UREA NITROGEN 34 mg/dL (8-26); CALCIUM 8.9 mg/dL (8.5-10.1); CARBON DIOXIDE 34 mmol/L (21-32); CHLORIDE 114 mmol/L (98-107); CREATININE 1.6 mg/dL (0.7-1.3); GFR 41.3; GLUCOSE 166 mg/dL (70-99); POTASSIUM 3.8 mmol/L (3.5-5.1); SODIUM 155 mmol/L (136-145)
== END 2017-07-25 02:38 | disposition expired | DRG 871 ==
LOC: 2 SOUTH 07-19 07:20 → ER 09:49 → ED HOLD 10:15 → 1 WEST ICU 11:00
PROC: 5A09557 Assistance with Respiratory Ventilation, Greater than 96 Consecutive Hours, Continuous Positive Airway Pressure (ICD-10-PCS; principal; 2017-07-15)
DX: A41.9 Sepsis, unspecified organism (principal); J15.6 Pneumonia due to other Gram-negative bacteria; J96.21 Acute and chronic respiratory failure with hypoxia; J69.0 Pneumonitis due to inhalation of food and vomit; G93.1 Anoxic brain damage, not elsewhere classified; I50.33 Acute on chronic diastolic (congestive) heart failure; E87.0 Hyperosmolality and hypernatremia; E46 Unspecified protein-calorie malnutrition; R13.10 Dysphagia, unspecified; J44.0 Chronic obstructive pulmonary disease with (acute) lower respiratory infection; J44.1 Chronic obstructive pulmonary disease with (acute) exacerbation; B37.9 Candidiasis, unspecified; Z66 Do not resuscitate; I25.10 Atherosclerotic heart disease of native coronary artery without angina pectoris; I11.0 Hypertensive heart disease with heart failure; E78.00 Pure hypercholesterolemia, unspecified; E78.5 Hyperlipidemia, unspecified; M19.90 Unspecified osteoarthritis, unspecified site; Y95 Nosocomial condition; E87.6 Hypokalemia; I48.91 Unspecified atrial fibrillation; I49.3 Ventricular premature depolarization; K59.00 Constipation, unspecified; Z99.81 Dependence on supplemental oxygen; Z87.891 Personal history of nicotine dependence; Z85.46 Personal history of malignant neoplasm of prostate; Z82.49 Family history of ischemic heart disease and other diseases of the circulatory system; Z90.79 Acquired absence of other genital organ(s); Z95.5 Presence of coronary angioplasty implant and graft
CPT/HCPCS: 31720; 36415; 36600; 71045; 74018; 80048; 80053; 82805; 83605; 83735; 83880; 84132; 84484; 85007; 85025; 85610; 87040; 87070; 87205; 87641; 87804; 87804-59; 92526-GN; 92610-GN; 93005; 94640; 94660; 94760; 96365; 96368; 96375; 97110-GP; 97116-GP; 97163-GP; 97166-GO; 97530-GO; 97530-GP; 97535-GO; 99291; 99291-25; J1450; J1940; J1956; J2020; J2543; J2930; J3370; J3480; J3490; J7030; J7613; J7620; J7626